=== PATIENT | male | born 1950 | race Caucasian/White ===

== ENCOUNTER → 2016-10-02 | Outpatient (CLI) | payer OTHER ==
[~2016-10-02] MED LIST: ACETAMINOPHEN PO; ANTIVERT PO; ASPIRIN PO; ASPIRIN81 M2 PO; ASPIRIN81 MG PO; BENADRYL25 M1 PO; CELEXA20 MG PO; CLOBETASOL E 0.60 GM TOP; CYANOCOBALAM1000 MCG PO; DURAGESIC25 MCG EXT; LISINOPRIL20 MG PO; LOPRESSOR PO; MEDROL4 MG/DOSE- PO; MULTIPLE VITAMI1 T11 PO; NEURONTIN300 MG PO; NO MEDICATIONS; OMEGA 3 FISH OI1 CAP PO; PERCOCET 10/3251 TAB PO; PHENERGAN25 M1 PO; POTASSIUM99 M2 PO; PREDNISONE10 MG PO; PROTONIX PO; THERA-TABS M C1 EACH PO; ZESTRIL10 M2 PO; ZOCOR PO
--- NOTE | ~2016-10-02 | CT2 ---
[facility] A Service of [facility] & [facility] RADIOLOGY TEXT RESULTS PATIENT: JOSE KRAMER LOCATION: [facility] : 48 UNIT #: [id number] AGE: [address]: Caryn Vora MD SEX: M ORDER DR: [id number] [facility] [place] [address] [facility] [place], [place] [address] [id number] O MR#: [id number] [facility] #: [id number] NAME: JOSE KRAMER : 1950 SEX: M STUDY DATE/TIME: 10/02/2016 12:34 UNIT: [facility] ROOM: STUDY DESCRIPTION: CT Abd and Pelv W Cont Attending Physician: Caryn Vora M.D., Ph.D. Referring Physician: Caryn Vora M.D., Ph.D. Ordering Physician: Caryn Vora M.D., Ph.D. Primary Care Physician: Bassam Morgan M.D. MEDICAL IMAGING REPORT This report is preliminary unless electronic signature is present EXAM CT abdomen and pelvis with contrast 10/02/2016 INDICATIONS 66-year-old male with breast cancer and also history of melanoma. Observation for metastatic disease. TECHNIQUE CT of the abdomen and pelvis was performed following the administration of IV contrast. Coronal and sagittal reformatted images were obtained. This CT exam was performed with one or more of the following radiation dose reduction techniques: automatic exposure control, adjustment of mA and/or kV according to patient size, and iterative reconstruction. COMPARISON STUDIES Comparison with 06/21/2016 FINDINGS ABDOMEN: Please refer to separately dictated CT of the chest for findings above the diaphragm. There are 3 tiny low-density lesions in the liver which are stable. The gallbladder is unremarkable. Splenomegaly with stable small low attenuation lesion in the posterior spleen. The kidneys, adrenal glands and pancreas are unremarkable. There is no ascites or lymphadenopathy. PELVIS: There is a small fat-containing right inguinal hernia. Sigmoid diverticulosis. Scattered diverticula elsewhere in the colon. Normal appendix. Prostatomegaly. Bone windows demonstrate degenerative changes of the lumbar spine. IMPRESSION 1. There is a stable low-density lesion in the spleen, dating back to [facility] A Service of [facility] & [facility] RADIOLOGY TEXT RESULTS PATIENT: JOSE KRAMER LOCATION: [facility] : 46 UNIT #: [id number] AGE: [address]: Caryn Vora MD SEX: M ORDER DR: 10/05/2014. 2. There are 3 tiny low-density lesions in the liver. 1 of them has been stable dating back to 2012. The other tumor is stable compared with most recent study. Continued followup is recommended. Dictated by... Johnny Dominguez M.D. THIS IS AN ELECTRONICALLY VERIFIED REPORT Johnny Dominguez M.D. at 10/03/2016 2:34 PM Peng TD: 10/02/2016 17:49 JOB #: [id number] MEDICAL IMAGING REPORT Page 1 of 1 COPY
--- NOTE | ~2016-10-02 | CT55 ---
[facility] A Service of [facility] & [facility] RADIOLOGY TEXT RESULTS PATIENT: JOSE KRAMER LOCATION: [facility] : 48 UNIT #: [id number] AGE: [address]: Caryn Vora MD SEX: M ORDER DR: [id number] [place] [id number] [facility]. [place], [place] [address] [id number] O MR#: [id number] [facility] #: [id number] NAME: JOSE KRAMER : 1950 SEX: M STUDY DATE/TIME: 10/02/2016 12:34 UNIT: [facility] ROOM: STUDY DESCRIPTION: CT Chest W Con Attending Physician: Caryn Vora M.D., Ph.D. Referring Physician: Caryn Vora M.D., Ph.D. Ordering Physician: Caryn Vora M.D., Ph.D. Primary Care Physician: Bassam Morgan M.D. MEDICAL IMAGING REPORT This report is preliminary unless electronic signature is present EXAM CT of the chest with contrast. DATE OF EXAM 10/02/2016 INDICATIONS Followup breast cancer. Observation for metastatic disease. TECHNIQUE CT of the chest was performed following administration of IV contrast. Coronal and sagittal reformatted images were obtained. NOTE: This CT exam was performed with one or more of the following radiation dose reduction techniques: automatic exposure control, adjustment of mA and/or kV according to patient size, and iterative reconstruction. COMPARISON 05/21/2016 FINDINGS There is atelectasis/scarring in the dependent portions of the lower lobes. There is no suspicious pulmonary nodule. There are scattered calcified granulomas. Stable subcentimeter upper paratracheal lymph node on the right. Stable right lower paratracheal lymph node. No pleural effusion. Postop changes of right mastectomy and right axillary srinivasan dissection. Please refer to separately dictated CT of the abdomen and pelvis for findings below the diaphragm. Bone windows are unremarkable. IMPRESSION No evidence for metastatic disease to the chest. Dictated by... [facility] A Service of [facility] & [facility] RADIOLOGY TEXT RESULTS PATIENT: JOSE KRAMER LOCATION: [facility] : 46 UNIT #: [id number] AGE: [address]: Caryn Vora MD SEX: M ORDER DR: Johnny Dominguez M.D. THIS IS AN ELECTRONICALLY VERIFIED REPORT Johnny Dominguez M.D. at 10/03/2016 2:34 PM KATINA/jamee TD: 10/02/2016 17:51 JOB #: [id number] MEDICAL IMAGING REPORT Page 1 of 1 COPY
[2016-10-02 13:51] LABS: POC - CREATININE 0.85 mg/dL (0.64-1.27); POC - GFR >60.0 mL/min (>60)
== END | disposition home or self-care (01) ==
LOC: CCAT 11:39
PROVIDERS: Internal Medicine Hematology & Oncology
DX: C43.60 Malignant melanoma of unspecified upper limb, including shoulder (principal); C77.0 Secondary and unspecified malignant neoplasm of lymph nodes of head, face and neck; C77.3 Secondary and unspecified malignant neoplasm of axilla and upper limb lymph nodes; E86.0 Dehydration; D73.89 Other diseases of spleen; K76.9 Liver disease, unspecified
CPT/HCPCS: 71260; 74177; 82565; Q9967